=== PATIENT | male | born 1995 | race American Indian/Alaskan Native ===

== ENCOUNTER 2024-10-05 19:12 | Emergency (ER) | payer MEDICAID, SELFPAY ==
[2024-10-05 19:13] VITALS: BMI 42.0
--- NOTE | 2024-10-05 19:24 | EKG_ITS ---
[facility] Test Date: 2024-10-05 Pat Name: CHRISTINA MONTEMAYOR Department: Room: - Gender: Male [employer] Operator: : [id number] Requested By: Aston Garza Order Number: [id number] Reading MD: Aston Garza Measurements Intervals [place] Rate: 65 P: 47 DC: 154 QRS: -38 QRSD: 110 T: 14 QT: 403 QTc: 422 Interpretive Statements SINUS RHYTHM MARKED LEFT AXIS DEVIATION [QRS AXIS < -30] S1-S2-S3 PATTERN, CONSISTENT WITH PULMONARY DISEASE, RVH, OR NORMAL VARIANT MODERATE VOLTAGE CRITERIA FOR LVH, CONSIDER NORMAL VARIANT [MEETS CRITERIA IN ONE OF: R(aVL), S(V1), R(V5), R(V5/V6)+S(V1)] NONSPECIFIC ST ELEVATION [0.05+ mV ST ELEVATION] No previous ECG available for comparison /store/S0/[id number].pdf
[2024-10-05 20:00] VITALS: BP 145/92; PULSE 66; RESP 18; TEMP 36.9; O2SAT 98
== END 2024-10-05 20:00 | disposition left against medical advice (07) ==
PROVIDERS: Emergency Provider Emergency Medicine
DX: Z53.21 Procedure and treatment not carried out due to patient leaving prior to being seen by health care provider (principal); R94.31 Abnormal electrocardiogram [ECG] [EKG]
CPT/HCPCS: 93005; 99281